=== PATIENT | male | born 1990 | race Caucasian/White ===

== ENCOUNTER 2020-03-19 15:08 | Emergency (ER) | payer OTHER ==
--- NOTE | 2020-03-19 16:02 | EDM.PDOC ---
ED HPI GENERAL MEDICAL PROBLEM - General Chief Complaint: General Stated Complaint: COUGHING UP BLOOD Time Seen by Provider: 03/19/20 16:00 Source of Information: Reports: Patient History Limitations: Reports: No Limitations - History of Present Illness INITIAL COMMENTS - FREE TEXT/NARRATIVE: Patient presented to the ED because of coughing up bright red blood mixed with white colored sputum. there is no associated dyspnea, abdominal pain or ant bloody stool. No fever/chills. - Related Data Allergies Allergy/AdvReac Type Severity Reaction Status Date / Time Penicillins Allergy Hives Verified 03/19/20 15:50 Home Meds: Home Meds Codeine/guaiFENesin [guaiFENesin-Codeine Syrup] 10 ml PO Q4HR PRN #120 ml 03/19/20 [Rx] traMADol [Ultram] 100 mg PO Q8H PRN #10 tab 03/19/20 [Rx] Social & Family History - Tobacco Use Smoking Status *Q: Current Every Day Smoker Years of Tobacco use: 10 Packs/Tins Daily: 1 - Recreational Drug Use Recreational Drug Use: Yes Drug Use in Last 12 Months: Yes Recreational Drug Type: Reports: Marijuana/Hashish ED ROS GENERAL - Review of Systems Review Of Systems: See Below Constitutional: Reports: No Symptoms HEENT: Reports: No Symptoms Respiratory: Reports: Cough, Sputum Cardiovascular: Reports: No Symptoms Endocrine: Reports: No Symptoms GI/Abdominal: Reports: No Symptoms : Reports: No Symptoms Musculoskeletal: Reports: No Symptoms Skin: Reports: No Symptoms Neurological: Reports: No Symptoms Psychiatric: Reports: No Symptoms ED EXAM, GENERAL - Physical Exam Exam: See Below Exam Limited By: No Limitations General Appearance: Alert, No Apparent Distress Eye Exam: Bilateral Eye: PERRL Ears: Normal External Exam, Normal Canal Nose: Normal Inspection, Normal Mucosa Throat/Mouth: Normal Inspection, Normal Lips Head: Atraumatic, Normocephalic Neck: Normal Inspection, Supple, Non-Tender, Full Range of Motion Respiratory/Chest: No Respiratory Distress, Lungs Clear, Normal Breath Sounds Cardiovascular: Normal Peripheral Pulses, Regular Rate, Rhythm GI/Abdominal: Normal Bowel Sounds, Soft, Non-Tender Back Exam: Normal Inspection, Full Range of Motion Course - Vital Signs Text/Narrative:: reassurance Last Recorded V/S: Last Vital Signs Temp 36.9 C 03/19/20 15:46 Pulse 73 03/19/20 15:46 Resp 18 03/19/20 15:46 BP 133/76 03/19/20 15:46 Pulse Ox 98 03/19/20 15:46 Departure - Departure Time of Disposition: 16:00 Disposition: Home, Self-Care 01 Condition: Good Clinical Impression: URI (upper respiratory infection), Pharyngitis - Discharge Information Prescriptions: Codeine/guaiFENesin [guaiFENesin-Codeine Syrup] 10 ml PO Q4HR PRN #120 ml PRN Reason: Cough traMADol [Ultram] 100 mg PO Q8H PRN #10 tab PRN Reason: Pain Instructions: Upper Respiratory Infection, Adult, [id number], Benzocaine mouth gel, ointment, solution, or dental paste, Pharyngitis, [id number] Referrals: Sung Martinez MD [Primary Care Provider] - Forms: ED Department Discharge Additional Instructions: Please read discharge instructions on URI and pharyngitis increase oral fluids NO aspirin, aleve, ibuprofen for 1 wek take tramadol 100 mg with tylenol 1000 mg every 8 hours as needed for tooth ache follow up if symptoms persist Sepsis Event Note (ED) - Evaluation Sepsis Screening Result: No Definite Risk
== END 2020-03-19 16:00 | disposition home or self-care (01) ==
LOC: FB.ED 15:08
DX: J06.9 Acute upper respiratory infection, unspecified (principal); J02.9 Acute pharyngitis, unspecified; F17.210 Nicotine dependence, cigarettes, uncomplicated; Z88.0 Allergy status to penicillin
CPT/HCPCS: 99283